=== PATIENT | female | born 1990 | race Caucasian/White ===

== ENCOUNTER 2024-05-29 11:38 | Emergency (ER) | payer SELFPAY ==
--- NOTE | 2024-05-29 12:30 | XR_ITS ---
Examination: PA lateral chest 2 views TECHNIQUE: Upright AP lateral chest 2 views INDICATIONS: Coughing fever today FINDINGS: Pectus deformity Accentuation bronchovascular markings No sophy lobar pneumonia No pulmonary edema Thoracic dextroscoliosis 15 degrees IMPRESSION: Basilar bronchitis pattern
--- NOTE | 2024-05-29 12:32 | PD.EDRME ---
Rapid Medical Screening Exam RME Arrival date/time: 05/29/24 11:38 33-year-old female with no known medical history presents to the emergency room with a chief complaint of fever, dizziness, cough, numbness to the lower extremities x 2 weeks I have greeted and performed a focused initial assessment of this patient. A comprehensive ED assessment and evaluation of the patient, analysis of all test results, and completion of the medical decision making process will be conducted by additional ED providers. Chief Complaint: Flu Like Symptoms Time Seen by Provider: 05/29/24 12:08 Vital signs reviewed by provider: Yes
[2024-05-29 12:37] VITALS: BP 112/74; PULSE 110; RESP 18; TEMP 36.9; O2SAT 88; BMI 21.6
[2024-05-29 12:47] LABS: Basophils % (Auto) 0 % (0-2.5); Eosinophils % (Auto) 0 % (0-10); Hematocrit 38.7 % (36.0-46.0); Hemoglobin 12.9 g/dL (12.0-16.0); Immature Granulocytes % (Auto) 1 % (0-0); Immature Granulocytes Auto 0.09 Thou/mm3 (0.00-0.00); Lymphocytes # (Auto) 0.6 Thou/mm3 (1.0-4.8); Lymphocytes % (Auto) 5 % (10-50); Mean Corpuscular HGB Conc 33.3 g/dl (31.0-37.0); Mean Corpuscular Hemoglobin 26.5 pg (25.0-35.0); Mean Corpuscular Volume 80 fL (80-100); Monocytes # (Auto) 0.2 Thou/mm3 (0.0-0.8); Monocytes % (Auto) 2 % (0-12); Neutrophils # (Auto) 10.8 Thou/mm3 (1.8-7.7); Neutrophils % (Auto) 92 % (37-80); Nucleated Red Blood Cell % 0 /100 WBC (0); Platelet Count 339 Thou/mm3 (140-440); RDW Standard Deviation 41.6 fL (36.4-46.3); Red Blood Count 4.86 Miln/mm3 (4.00-5.20); White Blood Count 11.7 Thou/mm3 (3.6-11.0)
[2024-05-29 13:13] LABS: Alanine Aminotransferase 12 U/L (10-49); Albumin, Serum 4.5 gm/dL (3.5-5.0); Albumin/Globulin Ratio 1.4 (1.2-2.2); Alkaline Phosphatase 67 U/L (46-116); Anion Gap 6 (7-16); Aspartate Amino Transferase < 10 U/L (0-34); BUN/Creatinine Ratio 18 Ratio (12-20); Bilirubin,Total 0.3 mg/dL (0.3-1.2); Blood Urea Nitrogen 11 mg/dL (9-23); Calcium 9.6 mg/dL (8.3-10.6); Calcium (Corrected) 9.6 mg/dL (8.5-10.1); Carbon Dioxide 27.4 mMol/L (20.0-31.0); Chloride 106 mMol/L (98-107); Creatinine (Component) 0.6 mg/dL (0.6-1.3); Estimated Creatinine Clearance 116.2 mL/min (>60); Globulin 3.2 gm/dL (2.3-3.5); Glucose 233 mg/dL (74-106); Osmolality,Calculated 283 (275-295); Potassium 3.2 mMol/L (3.4-5.1); Sodium 139 mMol/L (136-145); Total Protein 7.7 gm/dL (5.7-8.2); eGFR > 60 See Note
--- NOTE | 2024-05-29 16:44 | EDNOTE_ITS ---
<Statement entered by Inés Diaz MD - 05/29/24 16:57> As co-signing physician, I was present and available for consult prn. I concur with the plan and care as documented by the midlevel provider. Upper Respiratory Inf. RME/HPI General Chief Complaint: Flu Like Symptoms Stated Complaint: FEVER,COUGH, SOB, DIZZINESS, TINGLING IN THE LEGS Time Seen by Provider: 05/29/24 12:08 Arrival date/time: 05/29/24 11:38 RME / HPI RME / HPI Narrative: 33-year-old female with no known medical history presents to the emergency room with a chief complaint of fever, dizziness, cough, numbness to the lower extremities x 2 weeks patient denies any fever denies any other complaints no medications taken prior travel. Related Data Previous Rx's ?Medication ?Instructions ?Recorded albuterol sulfate 90 mcg/actuation 2 inh inhalation Q8 H PRN shortness 05/29/24 aerosol inhaler of breath or wheezing #8.5 g loly oseltamivir 75 mg capsule (Tamiflu) 75 mg PO BID 5 day s #10 caps 05/29/24 Allergies Allergy/AdvReac Type Severity Reaction Status Date / Time No Known Allergies Allergy Verified 05/29/24 11:43 Review of Systems Review of Systems Narrative Review of Systems: Review of system reviewed and within normal limits except mentioned in HPI ED Exam Narrative Physical exam: VITAL SIGNS: Reviewed. GENERAL APPEARANCE: Alert and interactive, follows commands, no acute distress, HEAD AND FACE: Non-traumatic. ENT: PERRL, pink conjunctivitis, eyelid no trauma, Mucous membrane moist. NECK: Supple, nontender, no nuchal rigidity. CHEST: No tenderness, no crepitus, no paradoxical movement, no retractions. LUNGS: Clear, well ventilated, symmetric, no rales, no wheezing, no ronchi, no stridor, good breath sounds bilaterally. HEART: Regular rate, regular rhythm, no murmur, no gallops. ABDOMEN: Soft, positive bowel sounds, nondistended, no guarding, nontender, no rebound, no masses, RECTAL: Deferred. GENITAL: Deferred. NEUROLOGICAL: Gross motor function intact sensory function intact, Appropriate for age. MUSCULOSKELETAL: low back nontender, full range of motion. EXTREMITIES: Nontender, full range of motion. SKIN: Color pink, dry, no rash, no lacerations, no abrasions, no contusions. LYMPHATICS: Deferred. Course Quality Measures none Orders Category Date Time Status Bedside COVID-19 Antigen Test NOW Care 05/29/24 12:30 Active Bedside Influenza A&B Antigen Test NOW Care 05/29/24 12:30 Completed XR chest 2V Stat Exams 05/29/24 12:30 Completed CBC Stat Lab 05/29/24 12:37 Completed CMP [Comprehensive Metabolic Panel] Stat Lab 05/29/24 12:37 Completed Vital Signs Vital signs: Vital Signs Temperature 98.4 F 05/29/24 12:37 Pulse Rate 110 H 05/29/24 12:37 Respiratory Rate 18 05/29/24 12:37 Blood Pressure 112/74 05/29/24 12:37 Pulse Oximetry (%) 88 L 05/29/24 12:37 Oxygen Delivery Method Room Air 05/29/24 12:37 Upper Respiratory Infection MDM Narrative [facility] Narrative:: 33-year-old female with no known medical history presents to the emergency room with a chief complaint of fever, dizziness, cough, numbness to the lower extremities x 2 weeks patient denies any fever denies any other complaints no medications taken prior travel. Patient is tested positive for influenza. Chest x-ray showed bronchitis pattern otherwise unremarkable. The rest of the labs unremarkable. Except for potassium of 3.2. On reevaluation patient oxygen saturation was noted to be 92% on room air. I do not hear any wheezing or shortness of breath. Patient is not having symptoms of Patient data External records reviewed:: None Clinical information provided by:: none Social determinants that could affect healthcare access:: none Patient has the following chronic illnesses:: None How is presenting disease/condition affected by chronic disease/condition?: no chronic disease Evaluation data The following diagnostics were reviewed and interpreted by me:: lab results and radiology exam(s) Lab and/or radiology exams considered but not ordered:: None Interpretation Summary: See results in MDM Medications / Prescriptions Medications or Prescriptions considered but not ordered:: None Medication administrations:: None Consultations Consultation(s) initiated? (list below): No Diagnosis Upper Respiratory Differential Diagnosis: upper respiratory infection, viral infection and bronchitis Most likely diagnosis given after review of the tests above:: Influenza, bronchitis Admission Indicated Admission indicated?: not indicated Admission Request Was there a request for admission?: No Disposition Plan Disposition Plan: Discharge Discharge Attestation Discharge Attestation: The patient and all family members were given an opportunity to ask questions and understood the discharge instructions. Discharge instructions specifically effects, indications for sooner follow up or return to the emergency department, and the expected course of current diagnosis. Patient condition: Stable Discharge Plan Plan Patient Disposition: HOME (Self Care) Disposition Comment: Stable Prescriptions/Referrals Prescriptions/Med Rec: New oseltamivir [Tamiflu] 75 mg capsule 75 mg PO BID 5 Days Qty: 10 0RF albuterol sulfate 90 mcg/actuation HFA aerosol inhaler 2 inh inhalation Q8H PRN (Reason: shortness of breath or wheezing) Qty: 8.5 0RF Referrals: No Primary/Family,Physician [Primary Care Provider] - In 1 week Problem List Clinical Impression: Influenza Patient/Caregiver Discharge Instructions Discharge Activity: activity as tolerated Education Materials: ED Influenza (Adult) Additional Instructions: Thank you for the opportunity for serving you today. You are stable for discharged . You are advised to: Follow-up with your PCP in 1 to 2 days Return to ED for worsening of symptoms Increase oral fluids Take medication as prescribed Print Language: Mosotho Stand Alone Forms: Cheryl Award Info., Patient Portal Info Letter ROGER/INGA Supervising Physician ROGER/INGA Supervising Physician: MD Joe
== END 2024-05-29 17:19 | disposition home or self-care (01) ==
PROVIDERS: Nurse Practitioner Family; Emergency Provider Emergency Medicine
DX: J11.1 Influenza due to unidentified influenza virus with other respiratory manifestations (principal)
CPT/HCPCS: 36415; 71046; 80053; 85025; 87400; 87811; 99283